=== PATIENT | male | born 1960 | race Caucasian/White ===

== ENCOUNTER 2019-01-05 05:32 | Observation (INO) | payer BC ==
[2019-01-05] VITALS (24 sets, daily range): BP systolic 114–139; BP diastolic 73–90; PULSE 56–112; RESP 13–20; Ht 175.3 cm; Wt 77.4 kg
[~2019-01-05] VITALS: Ht 175.3 cm; Wt 77.4 kg
[2019-01-05] MEDS ORDERED: THROMBIN 5000 UNIT (RECOTHROM) VIAL ONE (07:26)
[2019-01-05] MEDS ORDERED: POLYMYXIN/BACITRACIN 1L IRRIG ONE (07:26)
[2019-01-05] MEDS ORDERED: BUPIVACAINE 0.25%/EPI (SDV) 10 ML INJ ONE (07:26)
[2019-01-05] MEDS ORDERED: GELATIN SIZE 100 SPONGE ONE (07:26)
[2019-01-05] MEDS ORDERED: EPHEDrine 25 MG/5 ML SYG ONE (07:36)
[2019-01-05] MEDS ORDERED: PROPOFOL 20 ML ONE ×2 (07:37→07:54)
[2019-01-05] MEDS ORDERED: ROCURONIUM 50 MG INJ ONE ×2 (07:37→08:36)
[2019-01-05] MEDS ORDERED: MIDAZOLAM 1 MG/ML 2 ML INJ ONE (07:37)
[2019-01-05] MEDS ORDERED: LIDOCAINE 2% (SDV) 5 ML INJ ONE (07:37)
[2019-01-05] MEDS ORDERED: SUCCINYLCHOLINE CHLORIDE 100 MG/5 ML SYG IV ONE (07:37)
[2019-01-05] MEDS ORDERED: CEFAZOLIN 1 GM INJ ONE (07:54)
[2019-01-05] MEDS ORDERED: DEXAMETHASONE 4 MG/ML 5 ML INJ ONE (08:01)
[2019-01-05] MEDS ORDERED: ONDANSETRON 4 MG INJ ONE ×2 (08:01→11:08)
[2019-01-05] MEDS ORDERED: FAMOTIDINE 20 MG INJ ONE (08:01)
[2019-01-05] MEDS ORDERED: HEMOSTATIC MATRIX SYG ZFS ONE (08:28)
[2019-01-05] MEDS ORDERED: LABETALOL HCL 20MG INJ ONE (08:37)
[2019-01-05] MEDS ORDERED: FENTAnyl 50 MCG/ML VIAL IV PRN (10:30)
[2019-01-05] MEDS ORDERED: PROCHLORPERAZINE 10 MG INJ IV PRN (10:30)
[2019-01-05] MEDS ORDERED: ONDANSETRON 4 MG INJ IV PRN (10:30)
[2019-01-05] MEDS ORDERED: HYDROmorphONE 1 MG/5 ML IV SYRINGE IV PRN ×3 (10:30)
[2019-01-05] MEDS ORDERED: DIPHENHYDRAMINE 50 MG INJ IV PRN (10:30)
[2019-01-05] MEDS ORDERED: ACETAMINOPHEN 325 MG TAB PO PRN (11:00)
[2019-01-05] MEDS ORDERED: NACL 0.9% 3 ML SYG IV SCH (11:00)
[2019-01-05] MEDS ORDERED: AL HYDROX/MG HYDROX/SIMETH 30 ML CUP PO PRN (11:00)
[2019-01-05] MEDS ORDERED: NALOXONE (0.4 MG/ML) INJ IV PRN (11:00)
[2019-01-05] MEDS ORDERED: HYDROmorphONE 0.2 MG/ML PCA ONE (11:01)
[2019-01-05] MEDS ORDERED: FENTAnyl 50 MCG/ML VIAL ONE (11:08)
[2019-01-05] MEDS ORDERED: MEPERIDINE 25 MG INJ ONE (11:08)
[2019-01-05] MEDS: MEPERIDINE 25 MG INJ IV PRN ×2 (11:21→14:12)
[2019-01-05] MEDS: FENTAnyl 50 MCG/ML VIAL IV PRN ×2 (11:21→14:12)
[2019-01-05] MEDS: HYDROmorphONE 0.2 MG/ML PCA IV SCH ×2 (11:32→17:19)
[2019-01-05] MEDS ORDERED: CEFAZOLIN 1 GM/50 ML (PMX) 50 ML IVPB SCH (12:00)
[2019-01-05] MEDS: CEFAZOLIN 1 GM/50 ML (PMX) 50 ML IVPB SCH ×2 (14:35→20:07)
[2019-01-05] MEDS: SOD CHLORIDE 0.45% 1,000 ML IV SCH (14:38)
[2019-01-06 00:41] VITALS: BP 134/89; PULSE 70; RESP 18
[2019-01-06] MEDS: SOD CHLORIDE 0.45% 1,000 ML IV SCH ×2 (01:04→10:00)
[2019-01-06] MEDS: CEFAZOLIN 1 GM/50 ML (PMX) 50 ML IVPB SCH ×2 (01:09→06:14)
[2019-01-06 07:20] VITALS: BP 129/83; PULSE 65; RESP 17
[2019-01-06] MEDS ORDERED: DEXAMETHASONE 10 MG/ML 1 ML INJ IV ONE (08:00)
[2019-01-06] MEDS ORDERED: HYDROCODONE/APAP (5/325) TAB PO PRN (08:00)
[2019-01-06] MEDS: HYDROCODONE/APAP (5/325) TAB PO PRN ×4 (08:22→18:44)
[2019-01-06] MEDS ORDERED: DOCUSATE SODIUM 100 MG CAP PO SCH (09:00)
[2019-01-06 15:21] VITALS: BP 124/76; PULSE 74; RESP 18
== END 2019-01-06 19:02 | disposition home or self-care (01) ==
LOC: SDS 05:32 → EDSTATUS 07:30 → SDS 10:47 → REC 11:18 → MS1 11:42
PROVIDERS: ADMIT Orthopaedic Surgery; ATTEND Orthopaedic Surgery
DX: M51.16 Intervertebral disc disorders with radiculopathy, lumbar region (principal); E78.5 Hyperlipidemia, unspecified; K21.9 Gastro-esophageal reflux disease without esophagitis
CPT/HCPCS: 22856; 72050; 80048; 85014; 85018; 88304; 88311; 96361; 96365; 96366; 96374; 97116; 97161; 97530; 99217; G0378; J0690; J1100; J1170; J2175; J2250; J2405; J3010; L0174